=== PATIENT | female | born 1985 | race Two or more races ===

== ENCOUNTER 2017-07-22 20:20 | Emergency (ER) | payer MEDICAID ==
[~2017-07-22] VITALS: Ht 152.4 cm; Wt 65.3 kg
[2017-07-23 00:09] VITALS: BP 127/76
== END 2017-07-23 02:23 | disposition home or self-care (01) ==
LOC: ER 20:20
DX: S93.402A Sprain of unspecified ligament of left ankle, initial encounter (principal); X50.9XXA Other and unspecified overexertion or strenuous movements or postures, initial encounter; Y93.89 Activity, other specified; Y92.89 Other specified places as the place of occurrence of the external cause; Y99.8 Other external cause status
CPT/HCPCS: 73610; 73630; 81025